=== PATIENT | male | born 1990 | race Hispanic/Latino ===

== ENCOUNTER 2020-08-18 12:23 | Emergency (ER) | payer BC ==
[~2020-08-18] VITALS: Ht 193 cm; Wt 117.9 kg
[2020-08-18] MEDS ORDERED: DOXYCYCLINE HY100 MG PO (12:49)
== END 2020-08-18 13:30 | disposition home or self-care (01) ==
LOC: ER 12:43
DX: L03.311 Cellulitis of abdominal wall (principal)
CPT/HCPCS: 99283